=== PATIENT | male | born 1965 | race Native Hawaiian/Other Pacific Islander ===

== ENCOUNTER 2023-05-17 09:30 | Emergency (ER) | payer OTHER ==
[2023-05-17 09:58] VITALS: BP 138/83; O2SAT 97
--- NOTE | 2023-05-17 11:03 | ED Physician Documentation ---
History of Present Illness - Stated complaint Stated Complaint: LUMP ON CHEST - Chief complaint Chief Complaint: Wound - Additonal information Additional information: 57-year-old male who has a history of type 2 diabetes presents emergency de partment for evaluation of 2 to 3 weeks right breast tenderness. States that he occasionally will get small pimples on his skin which she will scrub hard with [place] and a washcloth. He had something very similar on his right nipple 2 weeks ago. Following this the nipple has become a tender mildly red. No drainage or discharge from the nipple. He is concerned he could have a skin infection. No fevers. No cough. Blood sugars have been about 280 at home. Review of Systems Constitutional: denies: Fever Cardiac: reports: Reviewed and negative Respiratory: reports: Reviewed and negative GI: reports: Reviewed and negative Skin: reports: Lesions. denies: Rash Musculoskeletal: reports: Reviewed and negative Neurologic: reports: Reviewed and negative PD PAST MEDICAL HISTORY - Present Medications Home Medications: Ambulatory Orders Medication Instructions Recorded Confirmed cephALEXin [Keflex] 500 mg PO Q6H #28 cap 05/17/23 - Allergies Allergies/Adverse Reactions: Allergies Allergy/AdvReac Type Severity Reaction Status Date / Time aspirin Allergy Respiratory Verified 05/17/23 09:41 PD ED PE NORMAL - General General: Alert and oriented X 3, No acute distress - HEENT HEENT: PERRL - Neck Neck: Supple, no meningeal sign, No adenopathy - Cardiac Cardiac: RRR, No murmur - Respiratory Respiratory: No respiratory distress, Clear bilaterally - Derm Derm: Other (Right nipple mildly erythematous between 9 and 12:00 without any drainage. The breast tissue is also mildly erythematous and tender though no fluctuation noted.) - Extremities Extremities: No deformity - Neuro Neuro: Alert and oriented X 3 Eye Opening: Spontaneous Motor: Obeys Commands Verbal: Oriented GCS Score: 15 Results - Vitals Vitals: Vital Signs - 24 hr 05/17/23 09:37 Temperature 36.5 C Heart Rate 76 Respiratory 16 Rate Blood Pressure 138/83 H O2 Saturation 97 Oxygen O2 Source Room air PD Medical Decision Making - ED course Complexity details: d/w patient ED course: This is a very pleasant well-appearing 57-year-old male the presents to the emergency department for evaluation of 2 weeks right nipple breast tenderness and redness that occurred after developing a superficial pimple that he scratched and scrubbed with Armenian clean. On exam this appears most consistent with a superficial mastitis. The patient will be started on Keflex and advised warm compresses 3 times a day. Given the lack of drainage or fluctuance I have lower suspicion for abscess formation. Patient advised that if not markedly better with the antibiotics he should return to the ER for repeat evaluation. However this is not a typical area of inflammation and infection especially for male. Given that 1 to 2% of all breast cancers are in fact male, the patient is advised to follow very closely with his primary care provider to ensure that he does not need additional screening for evaluation of cancer. The usual emergent return precautions for concerns of worsening infection were discussed. Departure - Departure Disposition: 01 Home, Self Care Clinical Impression: Mastitis in male Condition: Stable Record reviewed to determine appropriate education?: Yes Follow-Up: ERICA THOMPSON DO [Primary Care Provider] - Prescriptions: cephALEXin [Keflex] 500 mg PO Q6H #28 cap Comments: You are seen today in the emergency department because you have had some redness swelling and pain of your right nipple after scrubbing it hard. It does appear at this time that there is likely a infection of the nipple or breast tissue called mastitis. However about 1 to 2% of all breast cancers can occur in men and can present as atypical infections. In order to treat the symptoms today I am starting you on some antibiotics. Please with prescription for Keflex and take as directed for the next week. A warm compress over the nipple and breast tissue for 10 minutes 3 times a day can also help. No matter what occurs moving forward, it is critical that you follow very closely with your primary care doctor to discuss this ED visit as you may need further evaluation and testing to evaluate for the possibility of breast cancer.
== END 2023-05-17 11:13 | disposition home or self-care (01) ==
LOC: ED 09:30
DX: N61.0 Mastitis without abscess (principal)
CPT/HCPCS: 99282; 99283

== ENCOUNTER 2024-02-25 19:57 | Emergency (ER) | payer OTHER ==
[2024-02-25 20:12] VITALS: BP 147/81; O2SAT 98
--- NOTE | 2024-02-25 21:12 | ED Physician Documentation ---
History of Present Illness - Stated complaint Stated Complaint: OLIVO/CONGESTION - Chief complaint Chief Complaint: Resp - History obtained from History obtained from: Patient, Family - History of Present Illness Timing: How many weeks ago (1) Pain level max: 5 Pain level now: 5 - Additonal information Additional information: Patient is a 58-year-old male, diabetic who presents to the emergency department with rhinorrhea, cough and congestion. Patient states has been ongoing for the past 1 week. He is COVID vaccinated. Has not taken a home COVID test. Has body aches as well. Has been taking NyQuil and DayQuil. Nothing makes it better or worse. No abdominal pain, vomiting. No dyspnea. Review of Systems Constitutional: reports: Chills. denies: Fever Nose: reports: Rhinorrhea / runny nose, Congestion Cardiac: denies: Chest pain / pressure, Palpitations Respiratory: reports: Cough. denies: Dyspnea, Wheezing GI: denies: Abdominal Pain, Nausea, Vomiting, Diarrhea Skin: denies: Rash PD PAST MEDICAL HISTORY - Past Medical History Past Medical History: Yes Cardiovascular: None Respiratory: None Neuro: None Endocrine/Autoimmune: Type 2 diabetes GI: None : None HEENT: None Psych: None Musculoskeletal: None Derm: None - Present Medications Home Medications: Ambulatory Orders Medication Instructions Recorded Confirmed cephALEXin [Keflex] 500 mg PO Q6H #28 cap 05/17/23 - Allergies Allergies/Adverse Reactions: Allergies Allergy/AdvReac Type Severity Reaction Status Date / Time aspirin Allergy Respiratory Verified 02/25/24 20:03 - Social History Does the pt smoke?: No Smoking Status: Never smoker Does the pt drink ETOH?: No Does the pt have substance abuse?: No - Immunizations Immunizations are current?: Yes - POLST Patient has POLST: No PD ED PE NORMAL - Vitals Vital signs reviewed: Yes - General General: Alert and oriented X 3, No acute distress - HEENT HEENT: PERRL, Ears normal, Moist mucous membranes, Pharynx benign - Neck Neck: Supple, no meningeal sign - Cardiac Cardiac: RRR, Strong equal pulses - Respiratory Respiratory: No respiratory distress, Clear bilaterally - Abdomen Abdomen: Soft, Non tender, Non distended - Derm Derm: Warm and dry - Extremities Extremities: No edema - Neuro Neuro: Alert and oriented X 3 - Psych Psych: Normal mood, Normal affect Results - Vitals Vitals: Vital Signs - 24 hr 02/25/24 20:03 Temperature 36.9 C Heart Rate 80 Respiratory 16 Rate Blood Pressure 147/81 H O2 Saturation 98 Oxygen O2 Source Room air - Labs Labs: Laboratory Tests 02/25/24 20:00 Nasal Adenovirus (PCR) NOT DETECTED Nasal B. parapertussis DNA (PCR) NOT DETECTED Nasal Coronavir 229E PCR NOT DETECTED Nasal Coronavir HKU1 PCR NOT DETECTED Nasal Coronavir NL63 PCR NOT DETECTED Nasal Coronavir OC43 PCR NOT DETECTED Nasal Enterovir/Rhinovir PCR NOT DETECTED Nasal Influenza B PCR NOT DETECTED Nasal Influenza A PCR NOT DETECTED Nasal Parainfluen 1 PCR NOT DETECTED Nasal Parainfluen 2 PCR NOT DETECTED Nasal Parainfluen 3 PCR NOT DETECTED Nasal Parainfluen 4 PCR NOT DETECTED Nasal RSV (PCR) NOT DETECTED Nasal B.pertussis DNA PCR NOT DETECTED Nasal C.pneumoniae (PCR) NOT DETECTED Parth Human Metapneumo PCR NOT DETECTED Nasal M.pneumoniae (PCR) NOT DETECTED Nasal SARS-CoV-2 (PCR) DETECTED A PD Medical Decision Making - ED course Complexity details: reviewed results, re-evaluated patient, considered differential, d/w patient ED course: Patient is well-appearing, nontoxic. Afebrile. Lungs are clear to auscultation bilaterally. No hypoxia. Respiratory PCR is positive for COVID. Symptoms ongoing for 1 week, no indication for Paxlovid at this time. We will continue supportive care. Recommend decongestants and cough medication for home. No i ndication for antibiotics at this time. Patient counseled regarding signs and symptoms for which I believe and urgent re-evaluation would be necessary. Patient with good understanding of and agreement to plan and is comfortable going home at this time This document was made in part using voice recognition software. While efforts are made to proofread this document, sound alike and grammatical errors may occur. Departure - Departure Disposition: 01 Home, Self Care Clinical Impression: COVID-19 Condition: Good Instructions: ED Viral Syndrome Follow-Up: your,doctor in 1 week [Other] Comments: You have tested positive for COVID today. You can use decongestants, cough medication as needed at home. Please follow-up with your doctor for further care. Please return if you worsen. Your oxygen levels are normal today. Forms: PCP List Discharge Date/Time: 02/25/24 21:44
[2024-02-25] MEDS: IBUPROFEN 800 MG TABLET PO STA (21:15)
[2024-02-25] MEDS: PSEUDOEPHEDRINE 30 MG TABLET PO STA (21:15)
[2024-02-25] MEDS: CETIRIZINE 10 MG TABLET PO STA (21:15)
[2024-02-25 21:24] LABS: B. PARAPERTUSSIS- RESP PCR PAN NOT DETECTED; B. PERTUSSIS- RESP PCR PANEL NOT DETECTED; C. PNEUMONIAE- RESP PCR PANEL NOT DETECTED; CORONAVIRUS 229E-RESP PCR NOT DETECTED; CORONAVIRUS HKU1-RESP PCR NOT DETECTED; CORONAVIRUS NL63-RESP PCR NOT DETECTED; CORONAVIRUS OC43-RESP PCR NOT DETECTED; HUMAN METAPNEUMOVIRUS NOT DETECTED; INFLUENZA A- RESP PCR PANEL NOT DETECTED; INFLUENZA B - RESP PCR PANEL NOT DETECTED; M. PNEUMONIAE- RESP PCR PANEL NOT DETECTED; PARAINFLUENZA VIRUS 1 NOT DETECTED; PARAINFLUENZA VIRUS 2 NOT DETECTED; PARAINFLUENZA VIRUS 3 NOT DETECTED; PARAINFLUENZA VIRUS 4 NOT DETECTED; RHINOVIRUS/ENTEROVIRUS NOT DETECTED; RSV- RESP PCR PANEL NOT DETECTED
[2024-02-25 21:26] LABS: SARS-CoV-2 -RESP PCR PANEL DETECTED
== END 2024-02-25 21:44 | disposition home or self-care (01) ==
LOC: ED 19:57
DX: U07.1 COVID-19 (principal)
CPT/HCPCS: 87633; 99283; A9270